=== PATIENT | female | born 1980 | race Caucasian/White ===

== ENCOUNTER 2017-04-08 15:51 | Inpatient (IN) | payer BC, OTHER ==
[~2017-04-08] VITALS: Ht 165.1 cm; Wt 53.5 kg
--- NOTE | 2017-04-08 17:00 | NUR ---
Intake Assessment; Patient is a 37 year old female AOX4, presented to [facility] to detoxify from ETOH and Benzodiazepine. Patient arrived at intake office at approximately 1630. Patient is the primary source of information. Patient to be admitted under the care of Dr. Loyola to room 309. Educated patient regarding the importance of providing urine for urine drug screen. Patient appears intoxicated, very anxious, flushed face noted. Educated patient regarding the importance of compliance to unit protocols and policies, verbalized understanding.
[2017-04-08 18:20] LABS: *URINE HCG, QUAL NEGATIVE (NEGATIVE)
[2017-04-08 18:27] LABS: *AMPHETAMINE, URINE POSITIVE (NEGATIVE); *BARBITURATE, URINE NEGATIVE (NEGATIVE); *CANNABINOID, URINE NEGATIVE (NEGATIVE); *COCCAINE, URINE NEGATIVE (NEGATIVE); *OPIATE, URINE NEGATIVE (NEGATIVE); *PHENCYCLIDINE SCREEN,URINE NEGATIVE (NEGATIVE)
[2017-04-08] MEDS ORDERED: BUPR300T54 PO (18:38)
[2017-04-08] MEDS ORDERED: DISU250T7 PO (18:38)
--- NOTE | 2017-04-08 18:41 | NUR ---
Admission note; Patient is a 37 year old female AOX4, presented to [facility] to detoxify from ETOH and Benzodiazepine. Patient arrived at intake office at approximately 1630. Patient is the primary source of information. Patient to be admitted under the care of Dr. Loyola to room 309. Educated patient regarding the importance of providing urine for urine drug screen, verbalized understanding. No known allergies reported. Patient appears intoxicated, very anxious, flushed face noted. Educated patient regarding the importance of compliance to unit protocols and policies, verbalized understanding. Admitting vital signs are as follows; BP 120/79, HR 100, Respirations 18, Spo2 98% on room air, Temperature of 98.2, denies pain at this time. Discussed substance use history. Patient started drinking when she was 15 years old. She struggled with multiple attempts to achieve sobriety. She was recently sober for 105 days and recently relapsed 4 days ago. Patient has been drinking one bottle of vodka (750ml) per day for the past 4 days, last consumed today prior to admission. Patient also reported taking a prescribed Klonopin for Anxiety by her psychiatrist . Patient reported that she takes Klonopin 1mg/day as prescribed for anxiety, last taken today prior to admission. Discussed medical and physiatric history. Patient reported seizures due to ETOH withdrawals, last episode on October 2016. Patient also reported history of anxiety, depression, ADHD, Iron deficiency anemia, breast augmentation in 2012. Home medications reconciled to be reviewed by MD. Skin check done with no significant findings. Thorough body check done, no contrabands noted. Oriented patient to unit. Patient is on fall and seizure precaution. Bed in lowest position, call light within reach. Detailed report given to MD. Will continue to monitor patient. Addendum: 04/08/17 at 1921 by YAMIL QUEZADA LVN Patient also reported history of ADHD, patient takes Adderall 20mg PO as prescribed daily. Patient's CIWA is 4. Patient does not have a primary care physician.
[2017-04-08] MEDS ORDERED: MIRALAX 17 GM POWD.PACK PO PRN (18:45)
[2017-04-08] MEDS ORDERED: CLONIDINE HCL 0.1 MG TABLET PO PRN (18:45)
[2017-04-08] MEDS ORDERED: HYDROXYZINE PAMOATE 25 MG CAPSULE PO PRN (18:45)
[2017-04-08] MEDS ORDERED: DICYCLOMINE HCL 20 MG TABLET PO PRN (18:45)
[2017-04-08] MEDS ORDERED: MAG HYDROX/AL HYDROX/SIMETH 30 ML LIQUID UDC PO PRN (18:45)
[2017-04-08] MEDS ORDERED: ONDANSETRON 4 MG/2 ML VIAL IM PRN (18:45)
[2017-04-08] MEDS ORDERED: MAGNESIUM HYDROXIDE 30 ML LIQUID UDC PO PRN (18:45)
[2017-04-08] MEDS ORDERED: THIAMINE HCL 200 MG/2 ML VIAL IM ONE (18:45)
[2017-04-08] MEDS ORDERED: diphenhydrAMINE 50 MG CAPSULE PO PRN (18:45)
[2017-04-08] MEDS ORDERED: LOPERAMIDE HCL 2 MG CAPSULE PO PRN ×2 (18:45)
[2017-04-08] MEDS ORDERED: LORAZEPAM 1 MG TABLET PO PRN ×2 (18:45)
[2017-04-08] MEDS ORDERED: ACETAMINOPHEN 325 MG TABLET PO PRN (18:45)
[2017-04-08] MEDS ORDERED: LORAZEPAM 2 MG/1 ML VIAL IM PRN (18:45)
--- NOTE | 2017-04-08 19:19 | NUR ---
End of shift note; Patient is currently resting with eyes closed, respirations of 18 noted. Patient remained compliant with treatment plan. Patient is on fall and seizure precaution. Bed in lowest position, call light within reach. Safety measures secured. Met all needs.
--- NOTE | 2017-04-08 19:30 | NUR ---
Start of Shift Notes Received a 37 year old female A&OX4. Px has NKA, on regular diet and on Full Code. Patient reported seizures due to ETOH withdrawals, last episode on October 2016. Patient also reported history of anxiety, depression, ADHD, Iron deficiency anemia, breast augmentation in 2012. During the rounds at 1930, px appears anxious, with complaints of nausea. Patient is on fall and seizure precaution. Bed in lowest position, side rails up padded x2 and call light within reach. We'll continue to monitor patient.
[2017-04-08] MEDS ORDERED: CLON1TAB PO (19:32)
[2017-04-08] MEDS ORDERED: AMPH20TA3 PO (19:32)
[2017-04-08 20:00] VITALS: BP 108/74
[2017-04-08] MEDS: ONDANSETRON ODT 4 MG TAB.RAPDIS SL PRN (20:01)
--- NOTE | 2017-04-08 20:01 | NUR ---
PRN Zofran Px complained of nausea, Zofran 4 mg/tab, 1 tab given SL as PRN med. We'll continue to monitor.
--- NOTE | 2017-04-08 21:00 | NUR ---
Reassessment of nausea Px verbalized that her nausea improved after an hour of administration of Zofran 4mg PO. We'll continue to monitor.
[2017-04-08] MEDS: GABAPENTIN 300 MG CAPSULE PO SCH (21:23)
[2017-04-08 22:40] LABS: BASOPHILS # (AUTO) 0.1 K/uL (0.0-8.0); BASOPHILS % (AUTO) 1.2 % (0.0-2.0); EOSINOPHILS # (AUTO) 0.1 K/uL (0.0-0.7); EOSINOPHILS % (AUTO) 1.1 % (0.0-7.0); HEMATOCRIT 37.6 % (37-47); LYMPHOCYTES # (AUTO) 3.6 K/UL (0.8-4.8); LYMPHOCYTES % (AUTO) 59.9 % (20.5-51.5); MEAN CORPUSCULAR HEMOGLOBIN 31.2 UUG (27.0-31.0); MEAN CORPUSCULAR HGB CONC 35 g/dL (32.0-37.0); MEAN CORPUSCULAR VOLUME 90.6 FL (81.0-99.0); MONOCYTES # (AUTO) 0.6 K/UL (0.1-1.30); NEUTROPHILS # (AUTO) 1.8 K/UL (1.8-8.9); NEUTROPHILS % (AUTO) 28.8 % (38.5-71.5); PLATELET COUNT (AUTO) 301 K/UL (150-450); RED BLOOD CELL COUNT(AUTO) 4.16 MIL/UL (4.2-5.4); WHITE BLOOD COUNT (AUTO) 6.2 K/UL (4.0-11.2)
[2017-04-08 22:58] LABS: BILIRUBIN,TOTAL 0.8 mg/dL (0.2-1.0); CREATININE 0.8 mg/dL (0.6-1.3); MAGNESIUM 1.5 mg/dL (1.8-2.4); POTASSIUM 3.9 mmol/L (3.5-5.1); TOTAL PROTEIN, SERUM 6.5 g/dL (6.4-8.2)
[2017-04-09] VITALS: BP 112/77
--- NOTE | 2017-04-09 | NUR ---
CIWA deferred CIWA deferred due to the px is asleep. To assess if the px is awake per doctor's order. We'll continue to monitor.
[2017-04-09 04:00] VITALS: BP 117/74
--- NOTE | 2017-04-09 04:00 | NUR ---
CIWA deferred CIWA deferred due to the px is asleep. To assess if the px is awake per doctor's order. We'll continue to monitor.
--- NOTE | 2017-04-09 07:38 | NUR ---
End of Shift Notes 37 year old female A&OX4. Px has NKA, on regular diet and on Full Code. Patient reported seizures due to ETOH withdrawals, last episode on October 2016. Patient also reported history of anxiety, depression, ADHD, Iron deficiency anemia, breast augmentation in 2012. During the shift, px appears anxious, with complaints of nausea. Patient is on fall and seizure precaution. Px complained of nausea, Zofran 4 mg/tab, 1 tab given SL as PRN med. Oral intake of 500 ml, voided 1x, no BM. Slept for 11 hours. Bed in lowest position, side rails up padded x2 and call light within reach. We'll continue to monitor patient.
--- NOTE | 2017-04-09 07:51 | NUR ---
BEGINNING OF SHIFT Patient endorsement report received from night shift supervisor nurse, all pertinent information discussed. patient is a 37 year old female admitted on: 04/08/2017, patient with admitting Dx: etoh dependence. Patient currently with no ongoing taper, is under close observation for s/sx of withdrawal. During night shift supervisor patient received PRN: Zofran., last ciwa score of: 7. slept for 11 hours. Received patient in room. Alert and oriented x 4. On fall and seizure precautions. Educated patient on the current plan of care for the day and medication regimen. Safety measures in place. call light kept with in reach, will continue to monitor closely.
[2017-04-09 08:19] VITALS: BP 117/74
[2017-04-09] MEDS ORDERED: MAGNESIUM OXIDE 400 MG TABLET PO ONE (09:00)
[2017-04-09] MEDS ORDERED: TUBERCULIN,PURIF.PROT.DERIV. 5 TU/0.1 ML TEST ID ONE (09:00)
[2017-04-09] MEDS: THIAMINE HCL 100 MG TABLET PO SCH (09:14)
[2017-04-09] MEDS: MULTIVITAMINS,THERAPEUTIC TABLET PO SCH (09:14)
[2017-04-09] MEDS: DOCUSATE SODIUM 250 MG CAPSULE PO SCH (09:14)
[2017-04-09] MEDS: GABAPENTIN 300 MG CAPSULE PO SCH ×3 (09:14→20:41)
[2017-04-09] MEDS: FOLIC ACID 1 MG TABLET PO SCH (09:15)
[2017-04-09] MEDS ORDERED: LORAZEPAM 1 MG TABLET PO PRN ×2 (10:00)
[2017-04-09 12:26] VITALS: BP 111/69
[2017-04-09] MEDS ORDERED: Medication Not On Formulary EA (Bupropion Hcl (Bupropion Xl) 1 TAB) PO SCH (13:15)
[2017-04-09] MEDS: LORAZEPAM 0.5 MG TABLET PO SCH ×2 (14:02→20:41)
[2017-04-09] MEDS: buPROPion XL 150 MG TAB.SR.24H PO SCH (14:02)
[2017-04-09] MEDS: ONDANSETRON ODT 4 MG TAB.RAPDIS SL PRN ×2 (14:07→20:41)
--- NOTE | 2017-04-09 16:03 | NUR ---
Therapist prompted client about group times. Client stated she will try to attend tomorrow as she is "too tired" today.
[2017-04-09 17:51] VITALS: BP 106/61
--- NOTE | 2017-04-09 18:56 | NUR ---
END OF SHIFT Patient alert and oriented x4, compliant with therapeutic plan of care. Patient with admitting Dx: etoh dependence. Patient continues on 3 day modified Ativan taper as ordered, well tolerated, patient currently on day 1 of taper, well tolerated, no ASE noted. 0900 assessment patient presented with: mild nausea with no vomiting, moderate tremors, barely sweating, and moderate anxiety with ciwa score of: 10; 1300 assessment patient presented with: nausea, fine tremors, barely sweating, and anxiety with ciwa score of: 8; 1700 assessment patient presented with: fine tremors, barely sweating, and anxiety with ciwa score of: 5. Detox medication effective at reducing withdrawal symptoms. Patient encouraged adequate PO fluid intake as tolerated. Encouraged to attend group therapies/sessions to learn new coping skills to prevent relapse, preferred to stay in room, per patient would like to rest, denies any SI/HI. Patient Patients Respirations even and unlabored. No SOB noted, lungs are clear upon auscultation. Skin warm and dry to touch. Abdomen soft and non-distended with (+) BS in all 4 quadrants. No complains of N/V/D or constipation noted. Bladder non-distended. Voids independently. Safety measures in place. Call light kept with in reach. All needs met and rendered. Patient endorsed to assistant casino shift manager nurse, all pertinent information discussed.
[2017-04-09 20:00] VITALS: BP 110/73
[2017-04-09] MEDS: IBUPROFEN 400 MG TABLET PO PRN (20:41)
--- NOTE | 2017-04-09 20:41 | NUR ---
PRN Zofran SL Px complained of nausea without emesis. Zofran 4 mg/tab, 1 tab given SL as PRN med. We'll continue to monitor.
--- NOTE | 2017-04-09 21:41 | NUR ---
Reassessment of nausea Px verbalized that her nausea improved after an hour of administration of Zofran 4 mg SL. We'll continue to monitor.
[2017-04-10] VITALS: BP 117/74
[2017-04-10 04:00] VITALS: BP 111/69
--- NOTE | 2017-04-10 04:00 | NUR ---
CIWA deferred CIWA deferred due to the px is asleep. To assess if the px is awake per doctor's order. We'll continue to monitor.
[2017-04-10 07:07] LABS: HEPATITIS B SURFACE AG Negative (Negative)
--- NOTE | 2017-04-10 07:13 | NUR ---
End of Shift Notes 37 year old female A&OX4. Px has NKA, on regular diet and on Full Code. Patient reported seizures due to ETOH withdrawals, last episode on October 2016. Patient also reported history of anxiety, depression, ADHD, Iron deficiency anemia, breast augmentation in 2012. During the shift, px appears anxious, with complaints of nausea. Zofran 4 mg/tab, 1 tab given SL as PRN med. Oral intake of 350 ml, voided 1x, No BM. Slept for 12 hours. Patient is on fall and seizure precaution. Bed in lowest position, side rails up padded x2 and call light within reach. We'll continue to monitor patient.
--- NOTE | 2017-04-10 07:42 | NUR ---
BEGINNING OF SHIFT Patient endorsement report received from maintenance mechanic 2nd shift nurse, all pertinent information discussed. patient is a 37 year old female admitted on: 04/08/2017, patient with admitting Dx: etoh dependence. Patient currently with ongoing 3 day ativan taper as ordered, well toelrated. patient is scheduled to start day 2 of taper, will monitor closely. During maintenance mechanic 2nd shift patient received PRN: Zofran., last ciwa score of: 3. slept for 12 hours. Received patient in room. Alert and oriented x 4. On fall and seizure precautions. Educated patient on the current plan of care for the day and medication regimen. Safety measures in place. call light kept with in reach, will continue to monitor closely.
[2017-04-10 07:43] LABS: CREATININE 0.7 mg/dL (0.6-1.3); MAGNESIUM 1.6 mg/dL (1.8-2.4); POTASSIUM 4.8 mmol/L (3.5-5.1)
[2017-04-10 09:01] VITALS: BP 101/68
[2017-04-10] MEDS: FOLIC ACID 1 MG TABLET PO SCH (09:02)
[2017-04-10] MEDS: LORAZEPAM 0.5 MG TABLET PO SCH ×2 (09:02→17:00)
[2017-04-10] MEDS: THIAMINE HCL 100 MG TABLET PO SCH (09:02)
[2017-04-10] MEDS: MULTIVITAMINS,THERAPEUTIC TABLET PO SCH (09:02)
[2017-04-10] MEDS: DOCUSATE SODIUM 250 MG CAPSULE PO SCH (09:02)
[2017-04-10] MEDS: buPROPion XL 150 MG TAB.SR.24H PO SCH (09:02)
[2017-04-10] MEDS: GABAPENTIN 300 MG CAPSULE PO SCH ×2 (09:03→14:13)
[2017-04-10] MEDS: IBUPROFEN 400 MG TABLET PO PRN (09:11)
--- NOTE | 2017-04-10 09:11 | NUR ---
PRN MOTRIN Patient c/o body aches 11/12, provided with non pharmacological interventions with no relief, administered Motrin as ordered, will monitor effectiveness of medication.
--- NOTE | 2017-04-10 10:11 | NUR ---
MOTRIN REASSESSMENT Patient reports medication effective, current pain level 0/10, will continue to monitor.
[2017-04-10 13:15] VITALS: BP 101/57
[2017-04-10] MEDS ORDERED: MAGNESIUM OXIDE 400 MG TABLET PO ONE (13:45)
[2017-04-10 17:08] VITALS: BP 108/71
--- NOTE | 2017-04-10 18:48 | NUR ---
ORTHO COMMUNICATION Received called from Dr. Negron, regarding left hand surgery. Patient consented and agreed for surgery tomorrow morning at 0730. Per Dr. Negron spoke with patient and obtained consent regarding surgery. Patient to be NPO after midnight. Patient is aware. will continue to monitor. Addendum: 04/10/17 at 1850 by FERMIN POLLACK LVN INCORRECT PATIENT DISREGARD NOTE ABOVE
--- NOTE | 2017-04-10 19:03 | NUR ---
END OF SHIFT Patient alert and oriented x4, compliant with therapeutic plan of care. Patient with admitting Dx: etoh dependence. Patient continues on 3 day modified Ativan taper as ordered, well tolerated, patient currently on day 2 of taper, well tolerated, no ASE noted. 0900 assessment patient presented with: tremors that can be felt but not seen, and anxiety with ciwa score of: 5; 1300 assessment patient presented with: tremors that can be felt but not seen, and anxiety with ciwa score of: 5; 1700 assessment patient presented with: tremors that can be felt but not seen, and anxiety with ciwa score of: 5. Detox medication effective at reducing withdrawal symptoms. Patient encouraged adequate PO fluid intake as tolerated. Encouraged to attend group therapies/sessions to learn new coping skills to prevent relapse, preferred to stay in room, per patient would like to rest, denies any SI/HI. Patient received PRN: Motrin during shift. Patient Patients Respirations even and unlabored. No SOB noted, lungs are clear upon auscultation. Skin warm and dry to touch. Abdomen soft and non-distended with (+) BS in all 4 quadrants. No complains of N/V/D or constipation noted. Bladder non-distended. Voids independently. Safety measures in place. Call light kept with in reach. All needs met and rendered. Patient endorsed to security shift supervisor nurse, all pertinent information discussed.
[2017-04-10 20:00] VITALS: BP 115/67
--- NOTE | 2017-04-10 20:00 | NUR ---
Start of Shift Patient is a 37-year old, female, admitted for ETOH dependence. Patient is Full Code, with NKA and on Regular diet. Placed on an Ativan taper, last day on 04/11. No adverse reactions noted. Pt is AAOx4, with mild anxiety and is ambulatory with steady gait. No skin issues. No SOB noted, not in respi distress. Fall, universal and safety prec in place. Call light within reach. No c/o pain at this time. Latest CIWA=4. Will continue to monitor.
[2017-04-10] MEDS ORDERED: GABAPENTIN 300 MG CAPSULE PO SCH (21:00)
--- NOTE | 2017-04-10 21:15 | NUR ---
RN note Ativan refusal Pt with un administered Ativan scheduled at 1700. Pt refused Ativan 1 mg PO scheduled despite explanation of risks and benefits. Dr. Paulino notified. CIWA=4.
--- NOTE | 2017-04-10 21:20 | NUR ---
RN note PRN MOM Pt verbalized that she has not had any bowel movement since 04/08/17. With hypo bowel sounds upon auscultation. Administered MOM 30 ml PO as ordered.
[2017-04-10] MEDS ORDERED: LORAZEPAM 1 MG TABLET ONE (21:30)
[2017-04-11] VITALS: BP 112/70
[2017-04-11 04:00] VITALS: BP 110/74
--- NOTE | 2017-04-11 07:18 | NUR ---
End of Shift Patient is a 37-year old, female, admitted for ETOH dependence. Patient is Full Code, with NKA and on Regular diet. Placed on an Ativan taper, last day on 04/11. No adverse reactions noted. Pt is AAOx4, with mild anxiety and is ambulatory with steady gait. No skin issues. No SOB noted, not in respi distress. Fall, universal and safety prec in place. Call light within reach. No c/o pain at this time. Latest CIWA=3 slept for 8 hours. No bowel movement since administration of MOM. Endorsed to AM shift nurse for continuity of care.
[2017-04-11 08:08] VITALS: BP 100/52
[2017-04-11] MEDS: GABAPENTIN 300 MG CAPSULE PO SCH (08:54)
[2017-04-11] MEDS: buPROPion XL 150 MG TAB.SR.24H PO SCH (08:54)
[2017-04-11] MEDS: MULTIVITAMINS,THERAPEUTIC TABLET PO SCH (08:54)
[2017-04-11] MEDS: DOCUSATE SODIUM 250 MG CAPSULE PO SCH (08:55)
[2017-04-11] MEDS: THIAMINE HCL 100 MG TABLET PO SCH (08:55)
[2017-04-11] MEDS: FOLIC ACID 1 MG TABLET PO SCH (08:56)
[2017-04-11] MEDS ORDERED: LORAZEPAM 1 MG TABLET PO SCH (09:00)
--- NOTE | 2017-04-11 09:55 | NUR ---
REFUSED ATIVAN Patient refused Ativan 1 mg PO as ordered, per patient "i dont need it" patient was explained risk vs benefits of refusing detox medication with good verbal understanding. patients 0900 ciwa assessment presented with: tremors that can be felt but not seen and mild anxiety with ciwa score of: 2. Dr. moody notified. will continue to monitor.
[2017-04-11 12:24] VITALS: BP 122/80
[2017-04-11] MEDS ORDERED: THIA100T13 PO (13:31)
[2017-04-11] MEDS ORDERED: BUPR300T54 PO (13:31)
[2017-04-11] MEDS ORDERED: GABA-534 PO (13:31)
[2017-04-11] MEDS ORDERED: FOLI1TAB16 PO (13:31)
[2017-04-11] MEDS ORDERED: DISU250T7 PO (13:31)
--- NOTE | 2017-04-11 14:15 | NUR ---
DISCHARGE Patient discharged at 1415, in stable condition, not in any apparent acute distress. patients vital signs WNL. patient with no s/sx of withdrawal. Patient discharge instructions and teaching provided with good verbal understanding. patient discharged home, noted self motivated towards sobriety. Patients home medications, and discharge instructions were placed in patients personal duffel bag. patient off the unit at 1415 in stable condition.
== END 2017-04-11 14:15 | disposition home or self-care (01) | DRG 895 ==
LOC: SRC 15:51
PROVIDERS: ADMIT Internal Medicine; ATTEND Internal Medicine
PROC: HZ2ZZZZ Detoxification Services for Substance Abuse Treatment (ICD-10-PCS; principal; 2017-04-08)
PROC: HZ31ZZZ Individual Counseling for Substance Abuse Treatment, Behavioral (ICD-10-PCS; 2017-04-10)
DX: F10.230 Alcohol dependence with withdrawal, uncomplicated (principal); F33.2 Major depressive disorder, recurrent severe without psychotic features; F13.230 Sedative, hypnotic or anxiolytic dependence with withdrawal, uncomplicated; E83.42 Hypomagnesemia; Y90.9 Presence of alcohol in blood, level not specified; F41.9 Anxiety disorder, unspecified; G47.00 Insomnia, unspecified; F90.9 Attention-deficit hyperactivity disorder, unspecified type; Z80.3 Family history of malignant neoplasm of breast; Z81.8 Family history of other mental and behavioral disorders; Z79.899 Other long term (current) drug therapy
CPT/HCPCS: 36415; 80307; 80324; 83690; 83735; 84703; 85025; 86580; 86592; 86705; 86803; 87340; 87806; G0480; Q0162